=== PATIENT | male | born 1975 ===

== ENCOUNTER 2017-06-08 10:27 | Emergency (ER) | payer OTHER ==
[2017-06-08 10:28] VITALS: BMI 27.4
[2017-06-08 10:32] VITALS: O2SAT 100
--- NOTE | 2017-06-08 11:30 | RAD ---
PROCEDURE: Right Ankle Radiographs. HISTORY: r/o fx COMPARISON: None FINDINGS: BONES: Normal. No fracture. JOINTS: Normal. No osteoarthritis. Ankle mortise maintained. Talar dome intact SOFT TISSUES: Normal. OTHER FINDINGS: None. IMPRESSION: Normal right ankle radiographs.
--- NOTE | 2017-06-08 11:31 | RAD ---
PROCEDURE: Right Foot Radiographs. HISTORY: r/o fx COMPARISON: None. FINDINGS: BONES: Normal. No fracture. JOINTS: Normal. SOFT TISSUES: Soft tissue swelling at the mid/hindfoot the junction noted OTHER FINDINGS: None. IMPRESSION: No fracture or dislocation. Soft tissue swelling
--- NOTE | 2017-06-08 11:39 | C.PDOC ---
History Of Present Illness 42 year old male presents to the ED with complaints of right ankle pain for four days. Patient reports he jumped onto something injured the back of his ankle. He notes use of Naproxen with some relief, however pain persists. Patient is able to ambulate with a slight limp but denies fall, weakness, numbness, or other injuries. Chief Complaint (Nursing): Lower Extremity Problem/Injury History Per: Patient History/Exam Limitations: no limitations Onset/Duration Of Symptoms: Days (4 days ) Current Symptoms Are (Timing): Still Present Recent travel outside of the [place]: No - Ankle/Foot Description Of Injury: Other (jumped onto something ) Alleviating Factor(s): Other (naproxen with some relief ) Past Medical History Reviewed: Historical Data, Nursing Documentation, Vital Signs Vital Signs: Last Vital Signs Temp 98 F 06/08/17 11:48 Pulse 68 06/08/17 11:48 Resp 18 06/08/17 11:48 BP 103/71 06/08/17 11:48 Pulse Ox 100 06/08/17 12:41 - Medical History PMH: Gastritis, Hypercholesterolemia Surgical History: Appendectomy - [facility] Procedures LAPAROSCOP APPENDECTOMY (09/04/14) OTHER LAPAROSCOPIC UMBILICAL HERNIORRHAPHY (09/04/14) Family History: States: Unknown Family Hx - Social History Hx Tobacco Use: No Hx Alcohol Use: No Hx Substance Use: No - Immunization History Hx Tetanus Toxoid Vaccination: No Hx Influenza Vaccination: No Hx Pneumococcal Vaccination: Yes Review Of Systems Musculoskeletal: Positive for: Foot Pain (right ankle pain) Neurological: Negative for: Weakness, Numbness Physical Exam - Physical Exam Appears: Non-toxic, No Acute Distress Skin: Warm, Dry Head: Atraumatic, Normacephalic Cardiovascular: Rhythm Regular, No Murmur Respiratory: No Rales, No Rhonchi, No Wheezing, Other (clear to auscultation bilaterally ) Extremity: Normal ROM (Full ROM of right ankle ), Tenderness (point tenderness to posterior aspect of talus of right foot ), No Pedal Edema, No Calf Tenderness , Capillary Refill (good capillary refill, less than two seconds ), No Deformity , No Swelling, Other (right Meagan's tendon intact ) Pulses: Left Dorsalis Pedis: Normal, Right Dorsalis Pedis: Normal Neurological/Psych: Oriented x3, Normal Motor, Normal Sensation ED Course And Treatment O2 Sat by Pulse Oximetry: 100 (RA) - Other Rad Right Ankle X-Ray X-Ray: Viewed By Me, Read By Radiologist Interpretation: FINDINGS: BONES: Normal. No fracture. JOINTS: Normal. No osteoarthritis. Ankle mortise maintained. Talar dome intact. SOFT TISSUES: Normal. OTHER FINDINGS: None. IMPRESSION: Normal right ankle radiographs. Right Foot X-Ray X-Ray: Viewed By Me, Read By Radiologist Interpretation: FINDINGS: BONES: Normal. No fracture. JOINTS: Normal. SOFT TISSUES: Soft tissue swelling at the mid/hindfoot the junction noted. OTHER FINDINGS: None. IMPRESSION: No fracture or dislocation. Soft tissue swelling Progress Note: Right foot X-Ray and right ankle X-Ray were ordered. TIM wrap was applied by metallurgical or materials technician and checked by me. Disposition - Disposition Referrals: [facility] [Outside] [facility] [Outside] Disposition: HOME/ ROUTINE Disposition Time: 11:30 Condition: GOOD Additional Instructions: Thank you for letting us take care of you today. Your provider was Dr. Wilde. You were treated for an ankle sprain. The emergency medical care you received today was directed at your acute symptoms. If you were prescribed any medication, please fill it and take as directed. It may take several days for your symptoms to resolve. Return to the Emergency Department if your symptoms worsen, do not improve, or if you have any other problems. Please contact your doctor or call one of the physicians/clinics you have been referred to that are listed on the Patient Visit Information form that is included in your discharge packet. Bring any paperwork you were given at discharge with you along with any medications you are taking to your follow up visit. Our treatment cannot replace ongoing medical care by a primary care provider (PCP) outside of the emergency department. Thank you for allowing the [facility] team to be part of your care today. Follow up with the clinic in 3-5 days for re-evaluation and further management. Prescriptions: Ibuprofen [Motrin] 600 mg PO Q6 PRN #20 tab PRN Reason: Pain, Moderate (4-7) Instructions: Ankle Sprain (ED) Forms: [employer] (Tanzanian) - Clinical Impression Clinical Impression: Ankle sprain - Scribe Statement The provider has reviewed the documentation as recorded by the Scribe Bridget Federico All medical record entries made by the Scribe were at my direction and personally dictated by me. I have reviewed the chart and agree that the record accurately reflects my personal performance of the history, physical exam, medical decision making, and the department course for this patient. I have also personally directed, reviewed, and agree with the discharge instructions and disposition.
[2017-06-08 11:51] VITALS: BP 103/71; PULSE 68; RESP 18; TEMP 98
== END 2017-06-08 11:50 | disposition home or self-care (01) ==
LOC: C.ER 10:27
DX: S93.401A Sprain of unspecified ligament of right ankle, initial encounter (principal); W22.8XXA Striking against or struck by other objects, initial encounter; E78.00 Pure hypercholesterolemia, unspecified

== ENCOUNTER 2018-01-16 19:41 | Emergency (ER) | payer OTHER ==
[2018-01-16 19:41] VITALS: BMI 27.4
[2018-01-16 19:47] VITALS: BP 132/91; PULSE 89; RESP 20; TEMP 98.1; O2SAT 98
[2018-01-16] MEDS ORDERED: Naproxen 550 mg Tab PO STA (20:22)
[2018-01-16] MEDS ORDERED: Naproxen 550 mg Tab PO ONE (20:31)
--- NOTE | 2018-01-16 21:26 | CT ---
EXAM: CT Head Without Intravenous Contrast CLINICAL HISTORY: 42 years old, male; Condition or disease; Headache; Headache not specified; Additional info: Pain TECHNIQUE: Axial computed tomography images of the head/brain without intravenous contrast. All CT scans at this facility use one or more dose reduction techniques, viz.: automated exposure control; ma/kV adjustment per patient size (including targeted exams where dose is matched to indication; i.e. head); or iterative reconstruction technique. COMPARISON: CT - HEAD W/O CONTRAST 2016-09-29 20:16 FINDINGS: Brain: Minimal atrophy. No intracranial hemorrhage. No mass. No definite edema. Ventricles: No hydrocephalus. Bones/joints: No acute fracture. Soft tissues: Unremarkable. Sinuses: No acute sinusitis. Mastoid air cells: No mastoid effusion. Orbits: Unremarkable as visualized. IMPRESSION: 1. No definite acute intracranial abnormality. 2. Incidental/non-acute findings are described above.
--- NOTE | 2018-01-16 21:43 | C.PDOC ---
History Of Present Illness 42 yo male with PMH gastritis presents to ED for evaluation of headache and nausea for 1 week. Patient takes Advil with transient relief. Denies h/o migraines or trauma. Denies fever, visual changes, neck pain, abdominal pain, extremity numbness/weakness or history of similar symptoms. Time Seen by Provider: 01/16/18 20:00 Chief Complaint (Nursing): Headache History Per: Patient History/Exam Limitations: no limitations Onset/Duration Of Symptoms: Other (1 week) Current Symptoms Are (Timing): Still Present Quality: Aching, "Pain" Associated Symptoms: Nausea Additional History Per: Patient Past Medical History Reviewed: Historical Data, Nursing Documentation, Vital Signs Vital Signs: Last Vital Signs Temp 98.1 F 01/16/18 19:44 Pulse 89 01/16/18 19:44 Resp 20 01/16/18 19:44 BP 132/91 H 01/16/18 19:44 Pulse Ox 98 01/16/18 21:57 - Medical History PMH: Gastritis, Hypercholesterolemia Denies: Chronic Kidney Disease Surgical History: Appendectomy - [facility] Procedures LAPAROSCOP APPENDECTOMY (09/04/14) OTHER LAPAROSCOPIC UMBILICAL HERNIORRHAPHY (09/04/14) Family History: States: Unknown Family Hx - Social History Hx Tobacco Use: No Hx Alcohol Use: No Hx Substance Use: No - Immunization History Hx Tetanus Toxoid Vaccination: No Hx Influenza Vaccination: No Hx Pneumococcal Vaccination: Yes Review Of Systems Constitutional: Negative for: Fever, Chills Gastrointestinal: Positive for: Nausea. Negative for: Abdominal Pain Neurological: Positive for: Headache. Negative for: Weakness, Numbness Physical Exam - Physical Exam Appears: Well, Non-toxic, No Acute Distress Skin: Normal Color, Warm, Dry Head: Atraumatic, Normacephalic Eye(s): bilateral: Normal Inspection, PERRL, EOMI Ear(s): Bilateral: Normal Nose: Normal Oral Mucosa: Moist Throat: Normal, No Erythema, No Exudate Neck: Normal ROM, Supple Chest: Symmetrical, No Deformity, No Tenderness Cardiovascular: Rhythm Regular Respiratory: Normal Breath Sounds, No Rales, No Rhonchi, No Wheezing Extremity: Normal ROM, Capillary Refill (less than 2 seconds ) Neurological/Psych: Oriented x3, Normal Speech, Normal Cognition, Normal Cranial Nerves (2-12 intact, no focal deficts), Normal Sensation Gait: Steady ED Course And Treatment O2 Sat by Pulse Oximetry: 98 (on RA) Pulse Ox Interpretation: Normal Progress Note: CT Head ordered and reviewed. Reglan PO and Naproxen PO administered. Repeat BP: 134/84. On re-evaluation, patient is resting comfortably, is tolerating PO, and no longer has headache, neurologic deficit, photophobia, rash, fever, or nuchal rigidity. Pt notes he is concerned pain is secondary to sympathy symptoms for wifes . Discussed possible causes of headache and instructed for further evaluation with PMD in 1-2 days. Disposition - Disposition Referrals: [facility] [Outside] Disposition: HOME/ ROUTINE Disposition Time: 21:55 Condition: STABLE Additional Instructions: Follow up with your doctor in 1-2 days. Return to ER if symptoms persist or worsen. Prescriptions: Naproxen [Naprosyn] 1 tab PO BID PRN #20 tab PRN Reason: Pain Instructions: Headache, Adult (DC) Forms: [employer] ([place]) - Clinical Impression Clinical Impression: Headache - PA / CABLE FORMER / Resident Statement MD/DO has reviewed & agrees with the documentation as recorded. - Scribe Statement The provider has reviewed the documentation as recorded by the Scribe ([email or web address]) All medical record entries made by the Scribe were at my direction and personally dictated by me. I have reviewed the chart and agree that the record accurately reflects my personal performance of the history, physical exam, medical decision making, and the department course for this patient. I have also personally directed, reviewed, and agree with the discharge instructions and disposition.
== END 2018-01-16 22:14 | disposition home or self-care (01) ==
LOC: C.ER 19:41
DX: R51 Headache (principal)